=== PATIENT | female | born 1955 ===

== ENCOUNTER 2017-08-09 09:14 | Emergency (ER) | payer MEDICAID ==
[2017-08-09 09:32] VITALS: BP 143/84; PULSE 57; RESP 16; TEMP 98.6; O2SAT 99
[2017-08-09] MEDS ORDERED: Lidocaine 5% Patch TD STA (10:17)
--- NOTE | 2017-08-09 10:17 | ED PDOC ---
HPI: Back Time Seen by Provider: 08/09/17 10:05 Chief Complaint (Nursing): Back Pain Chief Complaint (Provider): Back pain History Per: Patient History/Exam Limitations: no limitations Onset/Duration Of Symptoms: Days (3 days) Current Symptoms Are (Timing): Still Present Additional Complaint(s): Pt. with back pain across lower. Has had same in the past after accident. Started with pain again. Tried motrin and tylenol with no resolve. Last motrin today 630am. Pt. with no abd pain, nausea, vomit, diarrhea, weakness, headaches, numbness, tingles, incontinence, constipation. Ambulates with the pain. Pain present on movement. No dysuria. Past Medical History Reviewed: Nursing Documentation, Vital Signs Vital Signs: Last Vital Signs Temp 98.6 F 08/09/17 09:30 Pulse 57 L 08/09/17 09:30 Resp 16 08/09/17 09:30 BP 143/84 08/09/17 09:30 Pulse Ox 99 08/09/17 09:30 - Medical History PMH: Back Problems - Surgical History Surgical History: No Surg Hx - Family History Family History: States: Unknown Family Hx - Social History Current smoker - smoking cessation education provided: No Alcohol: None Drugs: Denies - Home Medications Home Medications: Ambulatory Orders Medication Instructions Recorded Diazepam [Valium] 2 mg PO BID PRN #6 tab 08/09/17 Ibuprofen [Motrin] 600 mg PO TID 7 Days tab 08/09/17 Lidocaine 5% [Lidoderm] 1 ea TD DAILY PRN 5 Days patch 08/09/17 - Allergies Allergies/Adverse Reactions: Allergies Allergy/AdvReac Type Severity Reaction Status Date / Time No Known Allergies Allergy Verified 08/09/17 09:30 Review of Systems Constitutional: Negative for: Weakness Cardiovascular: Negative for: Chest Pain, Light Headedness Respiratory: Negative for: Shortness of Breath Gastrointestinal: Negative for: Abdominal Pain Musculoskeletal: Positive for: Back Pain. Negative for: Neck Pain, Shoulder Pain, Arm Pain, Hand Pain, Leg Pain Skin: Negative for: Rash Neurological: Negative for: Weakness, Numbness Physical Exam - Reviewed Nursing Documentation Reviewed: Yes Vital Signs Reviewed: Yes - Physical Exam Appears: Positive for: Well, Non-toxic, No Acute Distress Skin: Positive for: Normal Color, Warm Neck: Positive for: Normal, Painless ROM Cardiovascular/Chest: Positive for: Regular Rate, Rhythm Respiratory: Positive for: CNT, Normal Breath Sounds Gastrointestinal/Abdominal: Positive for: Normal Exam, Bowel Sounds, Soft. Negative for: Tenderness Back: Positive for: Normal Inspection. Negative for: L CVA Tenderness, R CVA Tenderness, Muscle Spasm Extremity: Positive for: Normal ROM, Other (straight leg test neg b/l). Negative for: Tenderness, Pedal Edema Neurologic/Psych: Positive for: Alert, Oriented - ECG O2 Sat by Pulse Oximetry: 99 Pulse Ox Interpretation: Normal - Progress ED Course And Treament: 1019: Pt. stable. AAOx3. Chronic back pain issues. Pt. ambulating with no issues. Fu with pcp. Rx valium, motrin, lidocaine. Disposition - Clinical Impression Clinical Impression: Back pain - Patient ED Disposition Is Patient to be Admitted: No Counseled Patient/Family Regarding: Diagnosis, Need For Followup, Rx Given - Disposition Referrals: [facility] [Outside] - 08/10/17 Disposition: Routine/Home Disposition Time: 10:22 Condition: STABLE Additional Instructions: Return if not better in 3 days. Prescriptions: Diazepam [Valium] 2 mg PO BID PRN #6 tab PRN Reason: Muscle Spasm Ibuprofen [Motrin] 600 mg PO TID 7 Days tab Lidocaine 5% [Lidoderm] 1 ea TD DAILY PRN 5 Days patch PRN Reason: Pain, Moderate (4-7) Instructions: Acute Low Back Pain (ED)
== END 2017-08-09 10:48 | disposition home or self-care (01) ==
LOC: H.ER 09:14
DX: M54.9 Dorsalgia, unspecified (principal)

== ENCOUNTER 2017-11-23 14:38 | Emergency (ER) | payer MEDICAID, OTHER ==
[2017-11-23 15:17] VITALS: BP 114/68; PULSE 56; RESP 18; TEMP 97.7; O2SAT 99
--- NOTE | 2017-11-23 17:08 | ED PDOC ---
Lower Extremity Pain/Injury Time Seen by Provider: 11/23/17 16:49 Chief Complaint (Nursing): Lower Extremity Problem/Injury Chief Complaint (Provider): RIGHT knee pain History Per: Patient History/Exam Limitations: no limitations Onset/Duration Of Symptoms: Days (1 week) Additional Complaint(s): h/o arthritis to knee and in past required fluid aspiration to medial knee 1 week ago started with pain and swelling to lateral aspect of knee denies trauma or injury or leg swelling Took ibuprofen and tylenol with no relief Denies fever Also reports almost 3 weeks of LEFT facial droop. Evaluated in [place] for stroke and was told it was not. PMD [facility] [place] Past Medical History Reviewed: Historical Data, Nursing Documentation, Vital Signs Vital Signs: Last Vital Signs Temp 97.7 F 11/23/17 15:12 Pulse 56 L 11/23/17 15:12 Resp 18 11/23/17 15:12 BP 114/68 11/23/17 15:12 Pulse Ox 99 11/23/17 15:12 - Medical History PMH: Back Problems, Diabetes, HTN - Family History Family History: States: Hypertension - Social History Current smoker - smoking cessation education provided: No - Home Medications Home Medications: Ambulatory Orders Medication Instructions Recorded Diazepam [Valium] 2 mg PO BID PRN #6 tab 08/09/17 Ibuprofen [Motrin] 600 mg PO TID 7 Days tab 08/09/17 Lidocaine 5% [Lidoderm] 1 ea TD DAILY PRN 5 Days patch 08/09/17 Dextran 70/Hypromellose 1 each OS PRN PRN #1 droperette 11/23/17 [Artificial Tears] Eye Patch [Opticlude] 1 each OS HS #1 each 11/23/17 Lidocaine 5% [Lidoderm] 1 ea TD DAILY PRN #30 patch 11/23/17 Naproxen [Naprosyn] 1 tab PO BID PRN #30 tab 11/23/17 - Allergies Allergies/Adverse Reactions: Allergies Allergy/AdvReac Type Severity Reaction Status Date / Time No Known Allergies Allergy Verified 08/09/17 09:30 Review of Systems ROS Statement: Except As Marked, All Systems Reviewed And Found Negative (and as per HPI) Eyes: Positive for: Other (LEFT eye feels irritated) Musculoskeletal: Positive for: Leg Pain. Negative for: Foot Pain Neurological: Positive for: Weakness (face) Physical Exam - Reviewed Nursing Documentation Reviewed: Yes Vital Signs Reviewed: Yes - Physical Exam Appears: Positive for: Non-toxic, No Acute Distress Head Exam: Positive for: ATRAUMATIC Skin: Positive for: Warm, Dry Eye Exam: Positive for: EOMI, PERRL, Other (LEFT eyelid: partial closing) ENT: Negative for: Pharyngeal Erythema, Tonsillar Exudate Neck: Positive for: Painless ROM, Supple Extremity: Positive for: Swelling (RIGHT knee: localized subtle edema to RIGHT knee inferolateral, no ballotment, mild ttp, FROM, no laxity, neg AP drawer test ). Negative for: Deformity Neurologic/Psych: Positive for: Alert, Oriented (x3), Facial Droop (LEFT face involving brow) - ECG O2 Sat by Pulse Oximetry: 99 Medical Decision Making Medical Decision Making: Accession No. : [id number] Patient Name / ID : THOMAS CALLAHAN / [id number] Exam Date : 11/23/2017 17:27:02 ( Approved ) Study Comment : Sex / Age : F / 62Y Creator : Ever Hoang MD Dictator : Ever Hoang MD Inside Sales Professional : Glazier Supervisor : Ever Hoang MD Approver2 : Report Date : 11/23/2017 17:52:21 My Comment : PROCEDURE: Right Knee Radiographs. HISTORY: RIGHT knee pain chronic. COMPARISON: None. FINDINGS: BONES: Normal. No fracture. JOINTS: Normal. No osteoarthritis. JOINT EFFUSION: None. OTHER FINDINGS: None. IMPRESSION: Normal radiographs of the right knee. Disposition - Clinical Impression Clinical Impression: Cooper's palsy, Knee sprain Counseled Patient/Family Regarding: Studies Performed, Diagnosis, Need For Followup, Rx Given - Disposition Referrals: [facility] [Outside] - 11/24/17 (FOLLOW UP AT CLINIC THIS WEEK FOR FURTHER EVALUATION AND REFERRAL TO ORTHOPEDIC CLINIC) Disposition: Routine/Home Disposition Time: 17:06 Condition: GOOD Prescriptions: Dextran 70/Hypromellose [Artificial Tears] 1 each OS PRN PRN #1 droperette PRN Reason: Dry Eyes Eye Patch [Opticlude] 1 each OS HS #1 each Lidocaine 5% [Lidoderm] 1 ea TD DAILY PRN #30 patch PRN Reason: PAIN Naproxen [Naprosyn] 1 tab PO BID PRN #30 tab PRN Reason: Pain Instructions: Cooper Palsy (ED), Knee Pain (ED) Print Language: OCCITAN
--- NOTE | 2017-11-23 17:54 | RAD ---
PROCEDURE: Right Knee Radiographs. HISTORY: RIGHT knee pain chronic. COMPARISON: None. FINDINGS: BONES: Normal. No fracture. JOINTS: Normal. No osteoarthritis. JOINT EFFUSION: None. OTHER FINDINGS: None. IMPRESSION: Normal radiographs of the right knee.
[2017-11-23] MEDS ORDERED: Lactated Ringer's 1,000 ML IV STA (18:11)
[2017-11-23] MEDS ORDERED: Dextrose 5%/Lactated Ringer's 1,000 ML IV SCH (18:15)
== END 2017-11-23 18:32 | disposition home or self-care (01) ==
LOC: H.ER 14:38
DX: G51.0 Bell's palsy (principal); M25.561 Pain in right knee; E11.9 Type 2 diabetes mellitus without complications; I10 Essential (primary) hypertension